=== PATIENT | male | born 2000 | race Hispanic/Latino ===

== ENCOUNTER 2022-03-12 21:49 | Emergency (ER) | payer MEDICAID ==
[2022-03-12] MEDS ORDERED: Ibuprofen 800 MG TAB ONE (22:50)
[2022-03-12] MEDS ORDERED: Acetaminophen 325 MG TAB ONE (22:50)
== END 2022-03-12 23:30 | disposition home or self-care (01) ==
LOC: ERS 21:49
DX: R51.9 Headache, unspecified (principal)
CPT/HCPCS: 99283